=== PATIENT | female | born 1985 | race Caucasian/White ===

== ENCOUNTER 2022-07-27 09:44 | Outpatient (CLI) | payer MEDICAID, SELFPAY ==
[2022-07-27 10:44] LABS: Basophils % 0.5 %; Eosinophils # 0.1 10^3/uL (0.0-0.8); Eosinophils % 2.2 %; Hematocrit 40.1 % (37.0-47.0); Hemoglobin 13.4 g/dL (11.5-15.3); Lymphocytes # 1.9 10^3/uL (0.8-4.8); Lymphocytes % 31.5 %; Mean Corpuscular HGB Conc 33.4 g/dL (30.0-36.0); Mean Corpuscular Hemoglobin 30.1 pg (28.0-34.0); Mean Corpuscular Volume 90.1 fl (81-99); Mean Platelet Volume 10.9 fL (7.4-10.4); Monocytes # 0.4 10^3/uL (0.2-0.9); Monocytes % 6.5 %; Neutrophils # 3.55 10^3/uL (1.8-7.7); Neutrophils % 58.6 %; Nucleated Red Blood Cells % 0 %; Platelet Count 264 10^3/cmm (130-400); Red Blood Count 4.45 10^6/uL (4.1-5.3); Red Cell Distribution Width 11.7 % (12.1-15.1)
[2022-07-27 11:29] LABS: 25 Hydroxy Vitamin D 24 ng/mL (30-100); Alanine Aminotransferase 23 U/L (0-33); Alkaline Phosphatase 104 U/L (35-105); Aspartate Amino Transferase 20 U/L (0-32); Blood Urea Nitrogen 11 mg/dL (6-20); Calcium 9.1 mg/dL (8.5-10.5); Carbon Dioxide 27 mmol/L (22-29); Chloride 102 mmol/L (98-107); Chol HDL Ratio 3.02 mg/dL (0.0-4.40); Cholesterol 157 mg/dL (0-200); Globulin 3.2 g/dL (1.3-4.6); Glomerular Filtration Rate 141.2 mL/min (90-130); Glucose 90 mg/dL (65-115); HDL Cholesterol 52 mg/dL (60-100); LDL Cholesterol Calculated 84 mg/dL (50-129); LDL HDL Ratio 1.62 RATIO (0.00-3.22); Osmolality Calculated 283 mOsm/kg (285-295); Sodium 137 mmol/L (136-145); Thyroid Stimulating Hormone 2.57 uIU/mL (0.27-4.20); Total Bilirubin 1.1 mg/dL (0.15-1.2); Total Protein 7.2 g/dL (6.6-8.7); Triglycerides 107 mg/dL (0-150)
== END 2022-07-27 09:45 | disposition home or self-care (01) ==
LOC: LAB 09:56
PROVIDERS: Visit Provider Nurse Practitioner Primary Care
DX: Z13.220 Encounter for screening for lipoid disorders (principal); Z13.29 Encounter for screening for other suspected endocrine disorder; I10 Essential (primary) hypertension
CPT/HCPCS: 36415; 80053; 80061; 82306; 84443; 85025

== ENCOUNTER 2023-02-08 08:41 | Outpatient (CLI) | payer MEDICAID, SELFPAY ==
--- NOTE | 2023-02-08 08:55 | US_ITS ---
WS: [id number] Complete ABDOMINAL ULTRASOUND HISTORY: LOSS OF SENSATION COMPARISON: None available. Study is overall compromised by patient's body habitus. Liver: 15.5 cm in length. Mild hepatic steatosis. No bile duct dilatation. Portal Vein: Normal hepatopetal flow with monophasic waveform. Gallbladder: Normally distended gallbladder with no stones or wall thickening. CBD: 0.5 cm Pancreas: Normal size and echogenicity. Right kidney: 12.1 cm x 5.9 x 4.3 cm. Cortex:1.3 cm. Normal size and echogenicity. No hydronephrosis or mass. Left kidney: 11.0 cm x 5.7 cm x 4.5 cm. Cortex: 1.1 cm. No mass, cortical thickening or hydronephrosis. Spleen: Normal size and echogenicity. Aorta and IVC: Unremarkable abdominal aorta and IVC. US/US abdomen complete* [id number] Impression: 1. Mild hepatic steatosis. 2. Otherwise negative. No additional findings but this study is compromised by patient's body habitus.
--- NOTE | 2023-02-08 08:55 | US_ITS ---
WS: [id number] US pelv w/transvag [id number] HISTORY: PELVIC PAIN COMPARISON: None available. Uterus: 6.4 cm x 4.2 cm x 3.8 cm. Normal size anteverted uterus. No fibroid or mass. Endometrium: 0.6 cm. Normal. Right ovary: No ovary identified. Left ovary: 3.0 cm x 2.6 cm x 1.8 cm. Normal size and vascularity, no cystic or solid masses. Small f ollicle. No free fluid in the cul-de-sac. US/US pelv w/transvag [id number] IMPRESSION: 1. Normal uterus and endometrium. 2. 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
== END 2023-02-08 08:42 | disposition home or self-care (01) ==
PROVIDERS: PCP Nurse Practitioner Primary Care; Visit Provider Nurse Practitioner Primary Care
DX: R10.2 Pelvic and perineal pain (principal); Z90.721 Acquired absence of ovaries, unilateral; K76.0 Fatty (change of) liver, not elsewhere classified
CPT/HCPCS: 76700; 76830; 76856

== ENCOUNTER 2023-04-14 07:49 | Outpatient (CLI) | payer MEDICAID, SELFPAY ==
[2023-04-14 08:03] VITALS: PULSE 73; RESP 18; O2SAT 99
[2023-04-14] MEDS: albuterol 2.5 mg/3 mL Neb INHALATION (08:03)
[2023-04-14 08:30] VITALS: PULSE 75
== END 2023-04-14 07:50 | disposition home or self-care (01) ==
LOC: RT 07:50
PROVIDERS: PCP Nurse Practitioner Primary Care; Visit Provider Nurse Practitioner Primary Care
DX: R06.02 Shortness of breath (principal)
CPT/HCPCS: J7613

== ENCOUNTER → 2023-11-10 15:37 | Outpatient (BNVA) | payer MEDICAID, SELFPAY | PROVIDERS: PCP Nurse Practitioner Primary Care; Referring Provider Nurse Practitioner Primary Care; Visit Provider Internal Medicine Pulmonary Disease | DX: R06.09 Other forms of dyspnea (principal); R91.8 Other nonspecific abnormal finding of lung field | CPT/HCPCS: 71045 ==

== ENCOUNTER 2023-11-11 13:50 | Outpatient (CLI) | payer MEDICAID, SELFPAY ==
[2023-11-11 14:27] LABS: Hematocrit 39.7 % (36-47); Mean Corpuscular HGB Conc 33.2 g/dL (30-55); Mean Corpuscular Hemoglobin 29.4 pg (27-33); Mean Corpuscular Volume 88.4 fl (85-98); Mean Platelet Volume 10.7 fL (7.4-10.4); Platelet Count 303 10^3/cmm (157-399); Red Blood Count 4.49 10^6/uL (3.85-5.65); Red Cell Distribution Width 11.6 % (12.1-15.1); White Blood Count 8.78 10^3/uL (3.29-11.43)
[2023-11-11 14:53] LABS: Absolute Eosinophils 0.1 10^3/cmm (0.0-0.7); Absolute Neutrophil 6.8 10^3/cmm (1.4-6.5); Absolute Segmented Neutrophil 6.6 10/cmm (1.6-7.1); Band Neutrophils Absolute 0.2 10^3/cmm (0.0-1.2); Eosinophils 1 %; Lymphocytes 18 %; Lymphocytes Absolute 1.8 10^3/cmm (1.2-3.4); Monocytes Absolute 0.1 10^3/cmm (0.1-0.6); Platelet Estimate Normal (Normal); Segmented Neutrophils 75 %; Total Cells Counted 100 (0-100)
[2023-11-14 15:30] LABS: Alternaria Alternata (M6) Ige <0.10 kU/L; Alternaria Class 0; Bermuda Class 0; Bermuda Grass (G2) Ige <0.10 kU/L; Cat Dander (E1) Ige <0.10 kU/L; Cat Dander Class 0; D. Farinae Class 0; Dermatophagoides Class 0; Dermatophagoides Farinae (D2) <0.10 kU/L; Dermatophagoides Pteronyssinus <0.10 kU/L; Dog Dander (E5) Ige <0.10 kU/L; Dog Dander Class 0; Elm (T8) Ige <0.10 kU/L; Elm Class 0; House Dust (Greer) (H1) Ige <0.10 kU/L; House Dust (Hollister- Stier) <0.10 kU/L; House Dust Class 0; Johnson Grass (G10) Ige <0.10 kU/L; Johnson Grass Cl 0; June Grass Class 0; June Grass(Kentucky Blue) (G8) <0.10 kU/L; Maple (Box Elder) (T1) Ige <0.10 kU/L; Maple Class 0; Meadow Fescue (G4) Ige <0.10 kU/L; Meadow Fescue Class 0; Mucor Racemosus Class 0; Oak (T7) Ige <0.10 kU/L; Oak Class 0; Orchard Grass (Cocksfoot) (G3) <0.10 kU/L; Penicillium Class 0; Penicillium Notatum (M1) Ige <0.10 kU/L; Perennial Rye Grass (G5) Ige <0.10 kU/L; Perennial Rye Grass Class 0; Sweet Vernal Class 0; Sweet Vernal Grass (G1) Ige <0.10 kU/L; Timothy Grass (G6) Ige <0.10 kU/L; Timothy Grass Class 0
[2023-11-15 15:35] LABS: Immunoglobulin E 21 kU/L (<OR=114)
[2023-11-15 16:34] LABS: Common Ragweed (Short) (W1) Ig <0.10 kU/L; English Plantain (W9) Ige <0.10 kU/L; English Plantain Class 0; Lamb'S Quarters (Goose Foot) <0.10 kU/L; Lamb'S Quarters Class 0; Ragweeed Class 0; Rough Marsh Elder (W16) Ige <0.10 kU/L; Rough Marsh Elder Class 0
== END 2023-11-11 13:51 | disposition home or self-care (01) ==
LOC: LAB 13:51
PROVIDERS: PCP Nurse Practitioner Primary Care; Visit Provider Internal Medicine Pulmonary Disease
DX: R06.09 Other forms of dyspnea (principal)
CPT/HCPCS: 36415; 82785; 85007; 85027; 86003

== ENCOUNTER → 2024-04-09 13:32 | Outpatient (BNVA) | payer OTHER, SELFPAY | PROVIDERS: PCP Nurse Practitioner Primary Care; Visit Provider Podiatrist Foot & Ankle Surgery | DX: M72.2 Plantar fascial fibromatosis; M92.61 Juvenile osteochondrosis of tarsus, right ankle; M92.62 Juvenile osteochondrosis of tarsus, left ankle | CPT/HCPCS: 73630 ==

== ENCOUNTER → 2024-07-06 17:34 | Outpatient (BNVA) | payer OTHER, SELFPAY | PROVIDERS: PCP Nurse Practitioner Primary Care | DX: M25.571 Pain in right ankle and joints of right foot (principal); M25.471 Effusion, right ankle | CPT/HCPCS: 73610 ==

== ENCOUNTER 2024-09-03 09:28 | Outpatient (CLI) | payer OTHER, SELFPAY ==
--- NOTE | 2024-09-03 09:30 | MR_ITS ---
WS: [id number] MRI RIGHT ANKLE WITHOUT CONTRAST. COMPARISON: Ankle radiograph 07/06/2024 Multiplanar, multisequence imaging is performed without contrast. Markedly abnormal appearance of the Achilles tendon. There is diffuse thickening and heterogeneity th roughout the majority of the Achilles tendon extending over a length of 8.5 cm. Achilles measures 1.5 cm in anterior posterior diameter. There is increased T2 signal and intermediate signal throughout t he Achilles tendon. Incomplete tear originates from the anterior distal portion of the Achilles tendo n. Tear is approximately 5 cm above the insertion site on the calcaneus. Fluid signal extends into th e anterior surface of the tendon and extends superiorly. Portions of the Achilles tendon are still in tact. There is fluid and edema along the anterior Kager fat pad. Moderate soft tissue edema along the posterior ankle and extending laterally. The peroneus longus and brevis tendons are intact. No tear is identified. Flexor houses longus, flexor digitorum longus and the posterior tibial tendons are normal. Extensor tendons are negative. No fractures or marrow edema. Normal syndesmosis. Normal talus. Anterior and posterior talofibular li gaments are intact. Anterior inferior tibiofibular ligament is intact. There is a small amount of flu id adjacent to the ligament but no tear. Normal appearance of the deltoid ligament. Calcaneofibular l igament is normal. Spring ligament is more difficult to identify due to small size. No plantar fascial abnormality. There is a small plantar calcaneal spur and enthesopathy of the dista l Achilles tendon. MR/MR ankle RT wo con* [id number] IMPRESSION: 1. Severe tendinopathy of the Achilles tendon with paratenonitis. 2. Incomplete tear of the anterior Achilles tendon approximately 5 cm above th e insertion site. Focal tear which extends superior along the tendon. 3. Marked heterogeneity with edema and thickening of the remaining tendon with edema in Kager fat pad. 4. No ligament or tendon abnormalities otherwise. 5. No fractures or marrow edema. 6. Soft tissue edema with moderate along the Achilles tendon and laterally.
== END 2024-09-03 09:29 | disposition home or self-care (01) ==
LOC: RAD 09:29
PROVIDERS: PCP Nurse Practitioner Primary Care; Visit Provider Podiatrist Foot & Ankle Surgery
DX: M76.61 Achilles tendinitis, right leg (principal); M25.461 Effusion, right knee
CPT/HCPCS: 73721

== ENCOUNTER 2024-09-07 07:58 | Day surgery (SDC) | payer OTHER, SELFPAY ==
[2024-09-07] VITALS (13 sets, daily range): BP systolic 100–145; BP diastolic 53–88; PULSE 59–76; RESP 12–18; TEMP 36.3–37.1; O2SAT 90–99; BMI 43.8
--- NOTE | 2024-09-07 | XR_ITS ---
WS: [id number] C-ARM RADIOGRAPHS RIGHT CALCANEUS; 2 IMAGES HISTORY: EMI PICS COMPARISON: None available. 2 images are submitted of the calcaneus. Detail is limited. XR/XR foot RT min 3V* [id number] IMPRESSION: Nondiagnostic imaging of the calcaneus during intraoperative procedure.
[2024-09-07] MEDS: gabapentin 300 mg Capsule PO (08:48)
[2024-09-07] MEDS: CELEcoxib 200 mg Capsule 400 MG PO (08:48)
[2024-09-07] MEDS: sodium chloride 0.9% 1,000 ML 30 ML IV (08:49)
--- NOTE | 2024-09-07 09:49 | SUR.PREOP ---
sciatic block completed pre-op. patient tolerated well. 30ml 0.5% ropivicaine and decadron used.
--- NOTE | 2024-09-07 10:03 | ANES.PREANE2 ---
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 Operation Date: 09/07/24 09:40 Proposed Procedures p Achilles Tendon Repair(Right) - Ld Willett DPM s [place] Resection(Not Applicable) - Ld Willett DPM Familial anesthetic complications: None Was Beta Selene taken within 24 hours: N/A Was Clonidine taken within 24 hours: N/A Last intake: Intake Last Liquid Date 09/06/24 Last Liquid Time 21:00 Last Solid Date 09/06/24 Last Solid Time 21:00 Social No alcohol and No tobacco Exam alert, oriented x 3, clear to auscultation bilaterally and regular rate & rhythm Airway Mallampati: Class III Dentition: full Metabolic Morbid Obesity Anesthetic Plan ASA status: 2 Anesthesia: General and Regional (specify below) Risk of > 500 ml blood loss (7ml/kg in children): No Medications/Allergies Home Medications Medication Instructions Recorded Confirmed Last Taken Type albuterol sulfate 90 mcg/actuation 1 inh inhalation QID PRN shortness 11/10/23 09/07/24 5 Months Ago Rx aerosol inhaler (Ventolin HFA) of breath or wheezing #8.5 grams ~04/07/24 benzonatate 200 mg capsule 200 mg PO TID PRN coughing 11/10/23 09/07/24 2 Months Ago History ~07/08/24 budesonide-formoterol HFA 80 2 puff inhalation BID #10.2 grams 11/10/23 09/06/24 Unknown Rx mcg-4.5 mcg/actuation aerosol inhaler (Symbicort) cetirizine 10 mg capsule (All Day 10 mg PO DAILY PRN allergies 11/10/23 09/07/24 1 Month Ago History Allergy (cetirizine)) ~08/07/24 crutches #1 ea 07/06/24 08/15/24 Unknown Rx ibuprofen 800 mg tablet 800 mg PO Q8H PRN pain #30 tabs 07/06/24 09/07/24 09/04/24 Rx fluoxetine 40 mg capsule 20 mg PO DAILY 09/06/24 09/06/24 09/06/24 History hydroxyzine HCl 50 mg tablet 20 mg PO QID PRN anxiety 09/06/24 09/07/24 Unknown History Allergies Allergy/AdvReac Type Severity Reaction Status Date / Time latex Allergy ALGY-Hives Verified 08/09/24 12:32 shellfish derived Allergy Unknown Verified 08/09/24 12:32 secor Allergy Unknown Uncoded 08/09/24 12:32 Current Medications Generic Name Dose Route Start Last Admin Trade Name Freq PRN Reason Stop Dose Admin Sodium Chloride 1,000 mls @ 30 mls/hr 09/07/24 08:15 09/07/24 08:49 Sodium Chloride 0.9% IV 09/08/24 08:14 30 mls/hr .Q24H DANDY Administration PFSH Anesthesia Medical History Psychiatric care Social History Smoking and tobacco/nicotine status: never used tobacco/nicotine Quit status (tobacco/nicotine): has quit using Year quit tobacco: December 2021 Former quit date comment: 1 ppd X 20 years Data Anesthesia Cardiac Studies: No Data to Display
--- NOTE | 2024-09-07 10:04 | ANES.PROC ---
Anesthesia Procedures Procedure/Date: 09/07/24 Nerve Block ^: Nerve Block 1: Main Anesthesia: general anesthesia Time Out Performed: Yes Consent: requested by attending/covering physician, from patient, from other, risks and benefits reviewed and patient agrees to proceed Nerve block location: popliteal (R) Anesthesia monitors applied: pulse oximetry, EKG, BP cuff and oxygen Nerve block position: supine Anesthetic Used: ropivicaine 0.5% (30 ml) and with decadron (4 mg) Ultrasound used to: recognize landmarks Nerve Stimulator Used?: No Interscalene/Femoral BLK: 4 stimuplex 21 g needle used for position and inplane approach, visualize local anesthetic spread and no vascular puncture identified Injection: neg aspiration of heme Patient Tolerated Procedure: well Complications: none
[2024-09-07] MEDS: clindamycin 900 MG/50 ML PREMIX 100 MG IV (10:06)
--- NOTE | 2024-09-07 10:10 | W.PM.OPSUD ---
Surgery/Procedure H&P Update DATE OF PROCEDURE: September 07, 2024 DATE H&P PERFORMED: 08/15/24 H&P UPDATE INFORMATION: I have reviewed H&P completed within last 30 days, I have examined patient prior to procedure, No changes to prior documentation and H&P is in [facility] [place] on date indicated PREOP DIAGNOSIS: Right Rogerio's and Achilles tendinosis PLANNED PROCEDURE: Operation Date: 09/07/24 09:40 Proposed Procedures p Achilles Tendon Repair(Right) - Ld Willett DPM s [place] Resection(Not Applicable) - dL Willett DPM
--- NOTE | 2024-09-07 11:21 | P.BOP_ITS ---
Date of Procedure: 12/30/23 Surgeon: Ld Willett DPM [employer](s): Vinod Procedure(s) performed: Right Achilles tendon repair and right Rogerio's resection Findings of the procedure(s): Rogerio's deformity right and Achilles tendinosis right Estimated blood loss: 2 mL Specimen(s) removed: No specimens Post-operative diagnosis: Right Rogerio's, right calcific Achilles tendinosis
--- NOTE | 2024-09-07 11:22 | P.OP_ITS ---
Operative Report Date of procedure: September 07, 2024 Pre-op diagnosis: ?Calcific tendinitis, right M65.271 and hypertrophy of right calcaneus M89.371 Post-op diagnosis: ?Calcific tendinitis, right M65.271 and hypertrophy of right calcaneus M89.371 Procedure done: 1) right Achilles tendon repair. CPT code 37095 2) right Rogerio's resection. CPT code 58086 Implants: Arthrex Achilles speed bridge with ripstop, 3-0 Vicryl, 4-0 Vicryl, 4-0 nylon Specimens removed/disposition: None Pathology: None Surgeon: Ld Willett DPM [employer]: Abigail Barrientos Estimated blood loss: 2 34 IV fluids: see intraoperative documentation Urine output: None Complications: None Brief History: Patient is a pleasant 38-year-old female returning to clinic for reevaluation of insertional Achilles tendinosis with Rogerio's deformity having failed conservative treatment greater than 6 weeks consisting of offloading with open back shoe, daily stretching, eccentric loading, steroidal and nonsteroidal anti- inflammatories with physical therapy at home program and duration greater than 6 weeks. It affects her overall quality of life has pain with daily activities, has her at home for the next 2 to 3 months and would like to discuss surgical planning as this is an ideal time for that reason. Patient denies any subjective nausea, vomiting, fever, chills, shortness of breath or chest pain. X-ray right foot taken 07/06/2024 shows insertional Achilles enthesophyte, Rogerio's bump and plantar Achilles enthesophyte, os peroneum, no other acute osseous abnormality appreciated. Recommend MRI right ankle for surgical planning, planning on Rogerio's resection, resection of Achilles for and debridement of Achilles tendon. I reviewed at length with the patient, the risks, potential complications, benefits, alternatives, expectations, and typical outcomes associated with the surgery. The risks and potential complications were explained in detail, including but not limited to infection, wound dehiscence or soft tissue complications, bleeding and hematoma, chronic edema, neuritis or nerve damage producing numbness or chronic pain, CRPS, failure to relieve pain or worsening pain, thick / painful / unsightly scar, limited motion / stiffness, malposition, delayed union, malunion, or nonunion, fracture, reaction to implants, anesthetic complications, venous thromboembolism, and deformity recurrence. I discussed the notion of no regrets with the patient as it pertains to complications and outcomes. The patient seemed to understand the nature of the proposed care and required convalescence. They asked appropriate questions, answered to their satisfaction. They are aware no guarantees can be made as to a satisfactory outcome and they understand there may be other possible unforeseen complications or outcomes not listed here that will be treated accordingly if they arise. There were no written or implied guarantees given to the patient. They gave informed consent to proceed. Procedure: Anesthesia and Positioning: After obtaining informed consent, the patient was taken to the operating room and placed under general anesthesia with preoperative right popliteal block per anesthesia. The patient was positioned prone on the operating table with appropriate padding under the bony prominences. 2. Preparation and Drape: The right lower extremity was prepped and draped in the usual sterile fashion, ensuring that the operative site was adequately exposed. 3. Incision: A curvilinear incision was made medial to the midline over the Achilles tendon, extending from the level of the superior aspect of the calcaneal tuberosity proximally towards the mid-calf. 4. Exposure: The subcutaneous tissue was carefully dissected to expose the Achilles tendon and the underlying Rogerio's deformity. Care was taken to protect the sural nerve and lesser saphenous vein. 5. Rogerio's Resection: The prominent bony exostosis (Rogerio's deformity) was identified. Using an osteotome and a rongeur, the exostosis was carefully resected, and the area was smoothed with a bone rasp. 6. Achilles Tendon Repair: Inspection of the Achilles tendon revealed mid substance tearing and mucoid degeneration with thickening and disorganized collagen fibers that were sharply debrided. The degenerated portion of the tendon was debrided back to healthy tissue. The Achilles tendon was then repaired using the Achilles SpeedBridge technique. This involved placing suture anchors at the calcaneal insertion of the Achilles tendon, passing FiberWire sutures through the tendon, and securing the tendon back to its anatomical position with a knotless bridging construct to allow for optimal tensioning and footprint coverage. 7. Closure: The wound was irrigated with sterile saline. The subcutaneous tissue and skin were then closed in layers using absorbable sutures for the subcutaneous layer and 4-0 nylon for the skin closure. A sterile dressing was applied. 8. Postoperative Care: The patient's leg was placed in a multilayer compressive posterior splint in equinus position to immobilize the ankle and allow for tendon healing.
[2024-09-07 11:29] LABS: OR HCG Qualitative Urine Negative (Negative)
[2024-09-07] MEDS: meperidine 50 mg/mL INJ 12.5 MG IVP (11:50)
--- NOTE | 2024-09-07 12:50 | ANE.PACU2 ---
Inpatient post-anesthesia follow up: Airway intact: Yes Vital signs: Temperature 98.7 F Pulse Rate 64 Respiratory Rate 18 Blood Pressure 125/53 Pulse Oximetry 94 Oxygen Delivery Me thod Room Air Oxygen Flow Rate 2 Fraction of Inspir ed Oxygen Hydration adequate: Yes Nausea and vomiting: No Pain level: 1 Mental status: Baseline
== END 2024-09-07 12:50 | disposition home or self-care (01) ==
PROVIDERS: Anesthesiology; PCP Nurse Practitioner Primary Care; Visit Provider Podiatrist Foot & Ankle Surgery
PROC: (CPT 27650; principal; 2024-09-07 09:40)
PROC: (CPT 27654; 2024-09-07 09:40)
DX: M65.271 Calcific tendinitis, right ankle and foot (principal); M89.371 Hypertrophy of bone, right ankle and foot; E66.01 Morbid (severe) obesity due to excess calories; Z68.41 Body mass index [BMI] 40.0-44.9, adult; Z87.891 Personal history of nicotine dependence
CPT/HCPCS: 27654; 28118; 73630; 76000; 81025; C1713; J1100; J2175; J2405; J2704; J2795; J3010; J3490; J7030

== ENCOUNTER 2024-09-27 06:00 | Outpatient (CLI) | payer OTHER, SELFPAY | END 2024-09-27 23:59 | disposition home or self-care (01) | LOC: SPT 09-28 10:31 | PROVIDERS: PCP Nurse Practitioner Primary Care; Visit Provider Orthopaedic Surgery | DX: Z47.89 Encounter for other orthopedic aftercare (principal); Z98.890 Other specified postprocedural states; M92.61 Juvenile osteochondrosis of tarsus, right ankle; M76.61 Achilles tendinitis, right leg | CPT/HCPCS: 97760; L4361 ==